=== PATIENT | male | born 1960 | race African-American/Black ===

== ENCOUNTER 2016-09-19 04:27 | Emergency (ER) | payer MEDICAID, OTHER ==
[~2016-09-19] VITALS: Ht 172.7 cm; Wt 90.0 kg
[2016-09-19] MEDS ORDERED: KETOROLAC 60MG/2ML VIAL IM ONE (07:00)
[2016-09-19 10:30] VITALS: BP 135/76
== END 2016-09-19 10:31 | disposition left against medical advice (07) ==
LOC: ER 04:34
DX: M79.605 Pain in left leg (principal); M79.604 Pain in right leg; I10 Essential (primary) hypertension; E78.00 Pure hypercholesterolemia, unspecified; H54.8 Legal blindness, as defined in USA; Z59.0 Homelessness
CPT/HCPCS: 96372; 99283; J1885

== ENCOUNTER 2016-09-29 01:04 | Emergency (ER) | payer MEDICAID, OTHER ==
[~2016-09-29] VITALS: Ht 177.8 cm; Wt 91.0 kg
[2016-09-29] MEDS ORDERED: IBUPROFEN 600MG TABLET PO ONE (07:00)
[2016-09-29 09:58] VITALS: BP 136/72
== END 2016-09-29 11:30 | disposition home or self-care (01) ==
LOC: ER 01:07
DX: M25.561 Pain in right knee (principal); M25.562 Pain in left knee; I10 Essential (primary) hypertension; E78.00 Pure hypercholesterolemia, unspecified; Z59.0 Homelessness
CPT/HCPCS: 99283

== ENCOUNTER 2016-10-01 00:25 | Emergency (ER) | payer MEDICAID ==
[~2016-10-01] VITALS: Ht 180.3 cm; Wt 81.6 kg
[2016-10-01] MEDS ORDERED: ACETAMINOPHEN 500MG TABLET PO ONE (02:00)
[2016-10-01 07:06] VITALS: BP 140/88
== END 2016-10-01 07:08 | disposition home or self-care (01) ==
LOC: ER 00:25
DX: M79.662 Pain in left lower leg (principal); M79.661 Pain in right lower leg
CPT/HCPCS: 99283

== ENCOUNTER 2016-10-03 22:33 | Emergency (ER) | payer MEDICAID ==
[~2016-10-03] VITALS: Ht 172.7 cm; Wt 77.0 kg
[2016-10-03 22:38] VITALS: BP 139/89
[2016-10-03] MEDS ORDERED: NAPROXEN 250MG TABLET PO ONE (23:15)
== END 2016-10-04 00:50 | disposition home or self-care (01) ==
LOC: ER 22:44
DX: M79.661 Pain in right lower leg (principal); M79.662 Pain in left lower leg; W18.39XA Other fall on same level, initial encounter; Y93.89 Activity, other specified; Y92.89 Other specified places as the place of occurrence of the external cause; Y99.8 Other external cause status
CPT/HCPCS: 99283

== ENCOUNTER 2016-10-04 05:51 | Emergency (ER) | payer MEDICAID ==
[~2016-10-04] VITALS: Ht 172.7 cm; Wt 81.0 kg
[2016-10-04 08:37] VITALS: BP 142/89
== END 2016-10-04 08:47 | disposition home or self-care (01) ==
LOC: ER 05:53
DX: Z04.8 Encounter for examination and observation for other specified reasons (principal)
CPT/HCPCS: 99281

== ENCOUNTER 2016-10-09 22:21 | Emergency (ER) | payer MEDICAID, OTHER ==
[~2016-10-09] VITALS: Ht 170.2 cm; Wt 81.6 kg
[2016-10-10] MEDS ORDERED: ACETAMINOPHEN 500MG TABLET PO ONE (05:00)
[2016-10-10 08:21] VITALS: BP 147/67
== END 2016-10-10 09:12 | disposition home or self-care (01) ==
LOC: ER 10-10 00:22
DX: M79.604 Pain in right leg (principal); M79.605 Pain in left leg; M19.90 Unspecified osteoarthritis, unspecified site; E78.00 Pure hypercholesterolemia, unspecified; I10 Essential (primary) hypertension
CPT/HCPCS: 99283

== ENCOUNTER 2016-10-11 23:14 | Emergency (ER) | payer MEDICAID, OTHER ==
[~2016-10-11] VITALS: Ht 172.7 cm; Wt 91.0 kg
[2016-10-12 05:25] VITALS: BP 119/51
== END 2016-10-12 07:10 | disposition home or self-care (01) ==
LOC: ER 23:15
DX: M79.662 Pain in left lower leg (principal); M79.661 Pain in right lower leg
CPT/HCPCS: 99283

== ENCOUNTER 2016-10-12 20:11 | Emergency (ER) | payer MEDICAID ==
[~2016-10-12] VITALS: Ht 172.7 cm; Wt 84.0 kg
[2016-10-12] MEDS ORDERED: PROCHLORPERAZINE MALEATE 10MG TABLET PO ONE (23:00)
[2016-10-12] MEDS ORDERED: PROCHLORPERAZINE 10MG/2ML VIAL IM NR (23:15)
[2016-10-13 04:15] VITALS: BP 131/80
== END 2016-10-13 05:20 | disposition home or self-care (01) ==
LOC: ER 20:12
DX: M79.604 Pain in right leg (principal); I10 Essential (primary) hypertension; Z59.0 Homelessness; Z98.890 Other specified postprocedural states
CPT/HCPCS: 36415; 99283; G0482; J0780

== ENCOUNTER 2016-10-14 19:08 | Emergency (ER) | payer MEDICAID ==
[~2016-10-14] VITALS: Ht 177.8 cm; Wt 84.0 kg
[2016-10-15] MEDS ORDERED: KETOROLAC 60MG/2ML VIAL IM ONE (07:45)
[2016-10-15 08:20] VITALS: BP 119/71
== END 2016-10-15 09:43 | disposition left against medical advice (07) ==
LOC: ER 19:09
DX: M79.605 Pain in left leg (principal); M79.606 Pain in leg, unspecified; E78.00 Pure hypercholesterolemia, unspecified; I10 Essential (primary) hypertension
CPT/HCPCS: 96372; 99283; J1885; Z7610

== ENCOUNTER 2016-10-16 20:21 | Emergency (ER) | payer MEDICAID ==
[~2016-10-16] VITALS: Ht 175.3 cm; Wt 81.0 kg
[2016-10-16 21:15] VITALS: BP 136/88
[2016-10-16] MEDS ORDERED: KETOROLAC 30MG/ML VIAL IM ONE (21:15)
== END 2016-10-16 22:38 | disposition home or self-care (01) ==
LOC: ER 20:22
DX: L03.116 Cellulitis of left lower limb (principal); L03.115 Cellulitis of right lower limb; E78.00 Pure hypercholesterolemia, unspecified; I10 Essential (primary) hypertension
CPT/HCPCS: 93970; 99284; J1885

== ENCOUNTER 2016-10-18 20:12 | Emergency (ER) | payer MEDICAID ==
[~2016-10-18] VITALS: Ht 185.4 cm; Wt 95.3 kg
[2016-10-19] MEDS ORDERED: IBUPROFEN 600MG TABLET PO ONE (01:30)
[2016-10-19 07:35] VITALS: BP 126/72
== END 2016-10-19 09:18 | disposition home or self-care (01) ==
LOC: ER 20:13
DX: M79.604 Pain in right leg (principal); I10 Essential (primary) hypertension; M79.605 Pain in left leg; G89.29 Other chronic pain
CPT/HCPCS: 99283

== ENCOUNTER 2016-10-20 20:30 | Emergency (ER) | payer MEDICAID ==
[~2016-10-20] VITALS: Ht 172.7 cm; Wt 90.0 kg
[2016-10-20 20:33] VITALS: BP 158/100
== END 2016-10-20 22:34 | disposition home or self-care (01) ==
LOC: ER 20:31
DX: R60.0 Localized edema (principal); I10 Essential (primary) hypertension; Z59.0 Homelessness; Z98.890 Other specified postprocedural states
CPT/HCPCS: 99283

== ENCOUNTER 2016-10-21 21:38 | Emergency (ER) | payer MEDICAID ==
[~2016-10-21] VITALS: Ht 172.7 cm; Wt 81.0 kg
[2016-10-22] MEDS ORDERED: IBUPROFEN 600MG TABLET PO ONE (04:30)
[2016-10-22] MEDS ORDERED: KETOROLAC 60MG/2ML VIAL IM ONE (05:00)
[2016-10-22 09:30] VITALS: BP 145/90
== END 2016-10-22 10:20 | disposition home or self-care (01) ==
LOC: ER 21:39
DX: M79.604 Pain in right leg (principal); M79.605 Pain in left leg; I10 Essential (primary) hypertension; H54.0 Blindness, both eyes; Z59.0 Homelessness
CPT/HCPCS: 96372; 99283; J1885

== ENCOUNTER 2017-08-24 04:03 | Emergency (ER) | payer MEDICAID, OTHER ==
[~2017-08-24] VITALS: Ht 175.3 cm; Wt 91.0 kg
[2017-08-24 07:15] VITALS: BP 156/85
== END 2017-08-24 07:23 | disposition home or self-care (01) ==
LOC: ER 04:03
DX: Z76.0 Encounter for issue of repeat prescription (principal); I10 Essential (primary) hypertension; H26.9 Unspecified cataract; Z59.0 Homelessness
CPT/HCPCS: 99283; Z7610

== ENCOUNTER 2017-09-02 01:16 | Emergency (ER) | payer OTHER ==
[~2017-09-02] VITALS: Ht 185.4 cm; Wt 105.0 kg
[2017-09-02 05:15] VITALS: BP 148/64
== END 2017-09-02 07:12 | disposition home or self-care (01) ==
LOC: ER 01:16
DX: J06.9 Acute upper respiratory infection, unspecified (principal); I10 Essential (primary) hypertension; M79.89 Other specified soft tissue disorders; F10.10 Alcohol abuse, uncomplicated; E78.00 Pure hypercholesterolemia, unspecified; Z87.828 Personal history of other (healed) physical injury and trauma
CPT/HCPCS: 71045; 99283

== ENCOUNTER 2017-09-06 23:01 | Emergency (ER) | payer OTHER ==
[~2017-09-06] VITALS: Ht 172.7 cm; Wt 87.0 kg
[2017-09-06] MEDS ORDERED: ASPIRIN 81MG TABLET PO ONE (23:30)
[2017-09-07 00:09] LABS: HEMATOCRIT. 36.7 % (42.0-52.0); HEMOGLOBIN. 11.7 g/dL (14.0-18.0); MEAN CORPUSCULAR HEMOGLOBIN 27.5 pg (28.0-32.0); MEAN CORPUSCULAR VOLUME 86.2 fL (80.0-94.0); MEAN PLATELET VOLUME 9.6 fl (7.4-10.4); PLATELET 172 x1000/uL (130-400); RED BLOOD CELL COUNT 4.26 mill/uL (4.7-6.1)
[2017-09-07 00:11] LABS: PROTHROMBIN TIME 9.9 sec (9.4-11.6)
[2017-09-07 00:15] LABS: CHLORIDE 105 mEq/L (98-107); ETHANOL BLOOD < 10 mg/dL
[2017-09-07 00:21] LABS: TROPONIN I < 0.02 ng/mL (0.00-0.04)
[2017-09-07 00:30] LABS: PLATELET ESTIMATE NORMAL
[2017-09-07 04:30] VITALS: BP 140/77
== END 2017-09-07 05:00 | disposition home or self-care (01) ==
LOC: ER 23:37 → CANBEDREQ 09-07 05:27
DX: R07.89 Other chest pain (principal); E78.00 Pure hypercholesterolemia, unspecified; H26.9 Unspecified cataract; I10 Essential (primary) hypertension; Z79.82 Long term (current) use of aspirin
CPT/HCPCS: 36415; 71045; 80053; 83690; 83880; 84484; 85025; 85610; 99285; G0482

== ENCOUNTER 2017-09-13 00:09 | Emergency (ER) | payer OTHER ==
[~2017-09-13] VITALS: Ht 172.7 cm; Wt 82.0 kg
[2017-09-13] MEDS ORDERED: IBUPROFEN 600MG TABLET PO ONE (04:45)
[2017-09-13 11:15] VITALS: BP 125/75
== END 2017-09-13 11:16 | disposition home or self-care (01) ==
LOC: ER 00:09
DX: M79.89 Other specified soft tissue disorders (principal); M79.604 Pain in right leg; M79.605 Pain in left leg; H40.9 Unspecified glaucoma; Z59.0 Homelessness
CPT/HCPCS: 93970; 99284

== ENCOUNTER 2017-09-16 16:05 | Emergency (ER) | payer OTHER ==
[~2017-09-16] VITALS: Ht 180.3 cm; Wt 90.0 kg
[2017-09-16 16:10] VITALS: BP 136/80
== END 2017-09-17 01:15 | disposition left against medical advice (07) ==
LOC: ER 16:19
DX: M79.604 Pain in right leg (principal); M79.605 Pain in left leg; Z53.21 Procedure and treatment not carried out due to patient leaving prior to being seen by health care provider

== ENCOUNTER 2017-09-17 04:17 | Emergency (ER) | payer OTHER | END 2017-09-17 08:47 | disposition left against medical advice (07) | LOC: ER 08:23 | DX: Z53.21 Procedure and treatment not carried out due to patient leaving prior to being seen by health care provider (principal) ==

== ENCOUNTER 2017-09-17 21:47 | Emergency (ER) | payer OTHER ==
[~2017-09-17] VITALS: Ht 177.8 cm; Wt 84.0 kg
[2017-09-17 21:51] VITALS: BP 132/74
[2017-09-18] MEDS ORDERED: ACETAMINOPHEN 500MG TABLET PO ONE (05:45)
[2017-09-18 06:55] LABS: *AMPHETAMINES SCREEN URINE NEGATIVE (NEGATIVE); *BARBITURATES SCREEN URINE NEGATIVE (NEGATIVE); *BENZODIAZEPINES SCREEN URINE NEGATIVE (NEGATIVE); *COCAINE SCREEN URINE NEGATIVE (NEGATIVE); CANNABINOID URINE SCREEN PRESUMTIVE POSITIVE (NEGATIVE); METHADONE URINE SCREEN NEGATIVE (NEGATIVE)
[2017-09-18 07:07] LABS: OPIATES URINE SCREEN NEGATIVE (NEGATIVE); PHENCYCLIDINE URINE SCREEN NEGATIVE (NEGATIVE)
== END 2017-09-18 07:01 | disposition left against medical advice (07) ==
LOC: ER 22:02
DX: M54.9 Dorsalgia, unspecified (principal); M79.606 Pain in leg, unspecified; E78.00 Pure hypercholesterolemia, unspecified; H40.9 Unspecified glaucoma; I10 Essential (primary) hypertension
CPT/HCPCS: 80305; 99283

== ENCOUNTER 2017-09-18 07:26 | Emergency (ER) | payer OTHER ==
[~2017-09-18] VITALS: Ht 172.7 cm; Wt 91.0 kg
[2017-09-18 07:38] VITALS: BP 143/90
== END 2017-09-18 12:48 | disposition left against medical advice (07) ==
LOC: ER 07:26
DX: Z76.89 Persons encountering health services in other specified circumstances (principal); E78.00 Pure hypercholesterolemia, unspecified; I10 Essential (primary) hypertension; Z59.0 Homelessness
CPT/HCPCS: 99283

== ENCOUNTER 2017-10-16 19:49 | Emergency (ER) | payer OTHER ==
[~2017-10-16] VITALS: Ht 175.3 cm; Wt 91.0 kg
[2017-10-16 21:50] LABS: BASOPHILS % 0.7 % (0.0-2.0); EOSINOPHILS % 2.1 % (0.0-5.0); HEMATOCRIT. 36.4 % (42.0-52.0); HEMOGLOBIN. 11.8 g/dL (14.0-18.0); LYMPHOCYTES % 15.3 % (20.0-50.0); MEAN CORPUSCULAR VOLUME 86.2 fL (80.0-94.0); MEAN PLATELET VOLUME 9.1 fl (7.4-10.4); MONOCYTES % 12.4 % (2.0-8.0); NEUTROPHILS % 69.5 % (40.0-76.0); PLATELET 171 x1000/uL (130-400); RED BLOOD CELL COUNT 4.22 mill/uL (4.7-6.1); RED CELL DISTRIBUTION WIDTH 14.9 % (11.6-14.6)
[2017-10-16 21:55] LABS: CHLORIDE 100 mEq/L (98-107)
[2017-10-16 21:58] LABS: ETHANOL BLOOD < 10 mg/dL
[2017-10-16 22:49] LABS: METHADONE URINE SCREEN NEGATIVE (NEGATIVE)
[2017-10-16 22:50] LABS: *AMPHETAMINES SCREEN URINE NEGATIVE (NEGATIVE); *BARBITURATES SCREEN URINE NEGATIVE (NEGATIVE); *BENZODIAZEPINES SCREEN URINE NEGATIVE (NEGATIVE); CANNABINOID URINE SCREEN PRESUMTIVE POSITIVE (NEGATIVE); OPIATES URINE SCREEN NEGATIVE (NEGATIVE); PHENCYCLIDINE URINE SCREEN NEGATIVE (NEGATIVE)
[2017-10-16 22:51] LABS: *COCAINE SCREEN URINE NEGATIVE (NEGATIVE)
[2017-10-17 01:43] VITALS: BP 146/78
== END 2017-10-17 01:56 | disposition home or self-care (01) ==
LOC: ER 19:58
DX: R07.9 Chest pain, unspecified (principal); R05 Cough; H40.9 Unspecified glaucoma; E78.00 Pure hypercholesterolemia, unspecified; I10 Essential (primary) hypertension; Z98.890 Other specified postprocedural states
CPT/HCPCS: 36415; 71045; 80053; 80305; 83690; 84484; 85025; 85610; 93005; 99285; G0482; Z7610

== ENCOUNTER 2017-10-23 20:05 | Emergency (ER) | payer OTHER ==
[~2017-10-23] VITALS: Ht 198.1 cm; Wt 109.0 kg
[2017-10-23 23:06] VITALS: BP 131/82
== END 2017-10-23 23:18 | disposition home or self-care (01) ==
LOC: ER 20:12
DX: I10 Essential (primary) hypertension (principal); Z76.0 Encounter for issue of repeat prescription
CPT/HCPCS: 99283

== ENCOUNTER 2017-10-28 01:24 | Emergency (ER) | payer OTHER ==
[~2017-10-28] VITALS: Ht 172.7 cm; Wt 90.0 kg
[2017-10-28 01:28] VITALS: BP 137/86
== END 2017-10-28 06:28 | disposition home or self-care (01) ==
LOC: ER 01:24
DX: Z76.0 Encounter for issue of repeat prescription (principal); I10 Essential (primary) hypertension; E78.00 Pure hypercholesterolemia, unspecified; H54.7 Unspecified visual loss
CPT/HCPCS: 99283